=== PATIENT | female | born 1955 | race Caucasian/White ===

== ENCOUNTER → 2017-07-05 | Outpatient (REF) | payer OTHER | LOC: M SFHCWAGY 09:45 | PROVIDERS: ATTEND Nurse Practitioner Family | DX: Z12.4 Encounter for screening for malignant neoplasm of cervix (principal) ==

== ENCOUNTER → 2017-07-05 | Outpatient (CLI) | payer OTHER ==
--- NOTE | 2017-07-05 12:27 | REP ---
LEFT BREAST MAMMOGRAM: HISTORY: Right breast cancer and mastectomy, August 2016. COMPARISON: 07/03/2016 and multiple other prior studies. Unilateral mammogram of the left breast is performed in this patient status post right mastectomy. Fibroglandular pattern is unchanged. There is no new mass or clustered microcalcifications. IMPRESSION: ACR 2 benign mammogram, left breast in this patient status post right mastectomy. Suggest followup mammogram in one year. BI-RADS/ACR category 2 mammogram. Benign finding(s). Routine annual screening mammography (for women over age 40). This mammogram was interpreted with the aid of an FDA-approved computer-aided detection system. The patient states she/he had a clinical breast exam in June 2017. Patient letter M1.
== END ==
LOC: M WHC 09:17
PROVIDERS: ATTEND Nurse Practitioner Family
DX: Z12.31 Encounter for screening mammogram for malignant neoplasm of breast (principal); Z90.11 Acquired absence of right breast and nipple; Z85.3 Personal history of malignant neoplasm of breast

== ENCOUNTER → 2018-07-06 | Outpatient (CLI) | payer OTHER | LOC: M WHC 09:44 | DX: Z12.31 Encounter for screening mammogram for malignant neoplasm of breast (principal); Z90.11 Acquired absence of right breast and nipple | CPT/HCPCS: 77067 ==

== ENCOUNTER → 2019-07-07 | Outpatient (CLI) | payer MEDICARE, OTHER ==
[~2019-07-07] MED LIST: CALC1TAB26 PO; LETR2.5T2 PO; SYNT75TA PO
--- NOTE | 2019-07-07 11:43 | REP ---
UNILATERAL MAMMOGRAM LEFT BREAST WITH 3D TOMOSYNTHESIS: Personal history of breast cancer with right mastectomy performed 2016. Family history of breast cancer at age 51 in paternal aunt. MLO and CC views of the left breast are performed with 3D tomosynthesis and compared to several prior studies, most recently 07/06/2018. There is mild to moderate fibroglandular tissue again seen scattered in the left breast, unchanged. No new mass or architectural distortion is seen. No clustered microcalcifications are seen. IMPRESSION: BIRADS 1: BI-RADS/ACR category 1 mammogram. Negative Mammogram. ACR 1 negative mammogram left breast in this patient status post right mastectomy. Suggest followup mammogram in 1 year. This mammogram was interpreted with the aid of an FDA-approved computer-aided detection system. The patient states he/she had a clinical breast exam in 06/2019. The patient letter being requested is M1.
== END ==
LOC: M WHC 09:53
PROVIDERS: ATTEND Nurse Practitioner Family
DX: Z12.31 Encounter for screening mammogram for malignant neoplasm of breast (principal); Z85.3 Personal history of malignant neoplasm of breast; Z90.11 Acquired absence of right breast and nipple; Z12.4 Encounter for screening for malignant neoplasm of cervix; N95.8 Other specified menopausal and perimenopausal disorders
CPT/HCPCS: 77063; 77067; G0101; G0123

== ENCOUNTER → 2019-07-07 | Outpatient (REF) | payer MEDICARE, OTHER | LOC: M SFHCWAGY 10:09 | PROVIDERS: ATTEND Nurse Practitioner Family | DX: Z12.4 Encounter for screening for malignant neoplasm of cervix (principal); N95.8 Other specified menopausal and perimenopausal disorders ==

== ENCOUNTER → 2020-07-05 | Outpatient (CLI) | payer MEDICARE, OTHER ==
[~2020-07-05] MED LIST changes: +BREAST PROSTHESIS R XX; +LISI-542 PO; +MASTECTOMY BRA RIGHT XX; +VALS1TAB66 PO
--- NOTE | 2020-07-06 14:20 | REPMRS ---
Patient History The patient states she had a clinical breast exam in June 2020. Patient is postmenopausal, has history of cancer in the right breast at age 61, and had previous chemotherapy at age 61. Family history of breast cancer at age 51 in paternal aunt. Malignant mastectomy of the right breast, August 20, 2016. Malignant US guided breast biopsy of the right breast, July 29, 2016. Benign excisional biopsy of the left breast, 2006. Taking tamoxifen for 3 years 5 months beginning at age 61. Digital Woman Screen Mammo: July 05, 2020 - Exam #: [id number] Bilateral CC and MLO view(s) were taken. Technologist: Elly Garcia, Technologist Prior study comparison: July 07, 2019, bilateral digital woman screen mammo performed at [facility]. July 06, 2018, bilateral digital woman screen mammo performed at [facility]. July 05, 2017, digital woman screen mammo performed at [facility]. FINDINGS: There are scattered fibroglandular densities. There has been no change in the appearance of the left breast parenchyma in the interval since the prior examination. No mass, architectural distortion, or microcalcific grouping has developed. No suspicious finding. 3-D tomosynthesis shows no additional findings. Assessment: BI-RADS/ACR category 2 mammogram. Benign Findings. Recommendation Routine screening mammogram of the left breast in 1 year. This mammogram was interpreted with the aid of an FDA-approved computer-aided dectection system. Electronically Signed By: Fabrice Díaz MD 07/06/20 [id number]
== END ==
LOC: M WHC 09:58
PROVIDERS: ATTEND Nurse Practitioner Family
DX: Z12.31 Encounter for screening mammogram for malignant neoplasm of breast (principal); Z78.0 Asymptomatic menopausal state; Z85.3 Personal history of malignant neoplasm of breast; Z92.21 Personal history of antineoplastic chemotherapy; Z90.11 Acquired absence of right breast and nipple; Z92.29 Personal history of other drug therapy
CPT/HCPCS: 77063; 77067; G0463

== ENCOUNTER → 2021-07-14 | Outpatient (CLI) | payer MEDICARE, OTHER ==
[~2021-07-14] MED LIST changes: +BREAST PROSTHESIS B XX; -LISI-542 PO; +LISI-898 PO; +MASTECTOMY BRA BILAT XX; +PROL60SO SC
--- NOTE | 2021-07-14 17:01 | REPMRS ---
Patient History The patient states she had a clinical breast exam in 2020. Family history of breast cancer at age 51 in paternal aunt. Malignant mastectomy of the right breast, August 20, 2016. Malignant US guided breast biopsy of the right breast, July 29, 2016. Benign excisional biopsy of the left breast, 2006. Taking tamoxifen for 3 years 5 months beginning at age 61. No breast complaints today Patient signed the MRS sheet 1st covid vaccine 03/21/21left arm-Moderna 2nd covid vaccine 04/18/21-left arm Priors on PACS Patient Identification Verified Digital Woman Screen Mammo: July 14, 2021 - Exam #: [id number] Bilateral CC and MLO view(s) were taken. Technologist: Jerome Brarologist Prior study comparison: July 05, 2020, bilateral digital woman screen mammo performed at [facility]. July 07, 2019, bilateral digital woman screen mammo performed at [facility]. July 06, 2018, bilateral digital woman screen mammo performed at [facility]. FINDINGS: There are scattered fibroglandular densities. There has been no change in the appearance of the left breast parenchyma in the interval since the prior examination. No mass, architectural distortion, or microcalcific grouping has developed. No suspicious finding. 3-D tomosynthesis shows no additional findings. Assessment: BI-RADS/ACR category 2 mammogram. Benign Findings. Recommendation Routine screening mammogram of the left breast in 1 year. This mammogram was interpreted with the aid of an FDA-approved computer-aided dectection system. Electronically Signed By: Fabrice Díaz MD 07/14/21 [id number]
== END ==
LOC: M WHC 15:29
PROVIDERS: ATTEND Nurse Practitioner Women's Health
DX: Z01.419 Encounter for gynecological examination (general) (routine) without abnormal findings (principal); Z12.31 Encounter for screening mammogram for malignant neoplasm of breast; Z85.3 Personal history of malignant neoplasm of breast; Z90.11 Acquired absence of right breast and nipple; Z92.29 Personal history of other drug therapy
CPT/HCPCS: 77063; 77067; G0101

== ENCOUNTER → 2022-08-18 | Outpatient (CLI) | payer MEDICARE, OTHER ==
[~2022-08-18] MED LIST changes: -LISI-898 PO; +LISI5TAB11 PO
== END ==
LOC: M WHC 10:58
PROVIDERS: ATTEND Specialist
DX: Z12.31 Encounter for screening mammogram for malignant neoplasm of breast (principal); Z85.3 Personal history of malignant neoplasm of breast; Z90.11 Acquired absence of right breast and nipple

== ENCOUNTER → 2023-08-19 | Outpatient (CLI) | payer MEDICARE, OTHER | LOC: M WHC 10:54 | PROVIDERS: ATTEND Specialist | DX: Z12.31 Encounter for screening mammogram for malignant neoplasm of breast (principal); Z85.3 Personal history of malignant neoplasm of breast; Z90.11 Acquired absence of right breast and nipple ==

== ENCOUNTER → 2023-08-19 | Outpatient (REF) | payer MEDICARE, OTHER | LOC: M SFHCWAGY 13:51 | PROVIDERS: ATTEND Specialist | DX: Z12.4 Encounter for screening for malignant neoplasm of cervix (principal) | CPT/HCPCS: 87624; G0123 ==

== ENCOUNTER → 2024-08-23 | Outpatient (CLI) | payer MEDICARE, OTHER | LOC: M WHC 15:27 | PROVIDERS: ATTEND Specialist | DX: Z12.31 Encounter for screening mammogram for malignant neoplasm of breast (principal); R92.323 Mammographic fibroglandular density, bilateral breasts ==

== ENCOUNTER → 2024-08-23 | Outpatient (REF) | payer MEDICARE, OTHER | LOC: M SFHCWAGY 17:35 | PROVIDERS: ATTEND Specialist | DX: Z12.4 Encounter for screening for malignant neoplasm of cervix (principal) ==

== ENCOUNTER → 2025-08-28 | Outpatient (CLI) | payer MEDICARE, OTHER ==
[~2025-08-28] MED LIST changes: +DENO60SY2 SC; -PROL60SO SC
== END ==
LOC: M WHC 08:07
PROVIDERS: ATTEND Specialist
DX: Z12.31 Encounter for screening mammogram for malignant neoplasm of breast (principal); Z85.3 Personal history of malignant neoplasm of breast; R92.322 Mammographic fibroglandular density, left breast; Z90.11 Acquired absence of right breast and nipple
CPT/HCPCS: 77067; G0279